=== PATIENT | male | born 1995 | race Two or more races ===

== ENCOUNTER 2019-02-06 15:18 | Emergency (ER) | payer BC, SELFPAY ==
[2019-02-06] MEDS ORDERED: Ketorolac Tromethamine 30 MG/ML VIAL ONE (15:35)
--- NOTE | 2019-02-06 15:55 | RAD ---
EXAM: Right Rib series with chest x-ray HISTORY: Right rib/chest pain COMPARISON: None FINDINGS: Single view of the chest shows a normal sized cardiomediastinal silhouette. There is no davi dence of consolidation, mass, or pleural effusion. Multiple views of the right ribs shows no evidence of displaced rib fracture. No underlying pleural t hickening or pneumothorax are seen. IMPRESSION: 1. No evidence of displaced rib fracture. 2. No evidence of acute cardiopulmonary disease.
[2019-02-06] MEDS ORDERED: Acetaminophen/Codeine 30-300mg Tablet ONE (16:27)
--- NOTE | 2019-02-06 16:47 | CT ---
EXAM: CT brain without contrast HISTORY: Head trauma with headache COMPARISON: None TECHNIQUE: Multiple contiguous axial images were obtained and a CT of the brain without contrast. Sag ittal and coronal reformats were performed. FINDINGS: The brain is normal in morphology and attenuation without focal lesions or confluent areas of infarction. There is no evidence of hydrocephalus, intracranial hemorrhage, or extra-axial fluid collection. The calvarium and overlying soft tissues are unremarkable. The visualized paranasal sinuses and masto id air cells are well aerated. IMPRESSION: No evidence of acute intracranial abnormality
== END 2019-02-06 17:30 | disposition home or self-care (01) ==
LOC: MADERS 15:18
DX: S06.9X9A Unspecified intracranial injury with loss of consciousness of unspecified duration, initial encounter (principal); S16.1XXA Strain of muscle, fascia and tendon at neck level, initial encounter; S29.012A Strain of muscle and tendon of back wall of thorax, initial encounter; S20.211A Contusion of right front wall of thorax, initial encounter; F17.210 Nicotine dependence, cigarettes, uncomplicated; V43.52XA Car driver injured in collision with other type car in traffic accident, initial encounter
CPT/HCPCS: 70450; 96374; J1885